=== PATIENT | male | born 1970 | race Caucasian/White ===

== ENCOUNTER 2018-10-09 16:37 | Emergency (ER) | payer OTHER ==
[~2018-10-09] VITALS: Ht 177.8 cm; Wt 97.7 kg
[2018-10-09] MEDS ORDERED: DEXAMETHASONE SOD PHOS 4 MG/ML 5 ML VIAL IM ONE (17:00)
[2018-10-09] MEDS ORDERED: CYCLOBENZAPRINE HCL 10 MG TABLET PO ONE (17:00)
[2018-10-09] MEDS ORDERED: KETOROLAC TROMETHAMINE 30 MG/ML VIAL IM ONE (17:00)
[2018-10-09] MEDS ORDERED: MORPHINE SULFATE 10 MG/ML SYRINGE IM ONE (18:00)
[2018-10-09 18:58] VITALS: BP 139/95
== END 2018-10-09 19:03 | disposition home or self-care (01) ==
LOC: EMS 16:40
DX: M54.32 Sciatica, left side (principal)
CPT/HCPCS: 96372; 99283; J1100; J1885; J2270